=== PATIENT | male | born 1935 | race Caucasian/White ===

== ENCOUNTER 2017-11-07 18:56 | Inpatient (IN) | payer OTHER ==
[2017-11-07 19:20] LABS: ADD MAN DIFF? NO
[2017-11-07 19:25] LABS: BASO # 0.1 x10^3/uL (0.0-0.2); BASO % 1 % (0-3); EOS # 0.1 x10^3/uL (0.0-0.7); EOS % 1 % (0-3); HEMATOCRIT 45.3 % (39.0-53.0); HEMOGLOBIN 14.9 g/dL (13.0-17.5); LYMPH # 2.7 x10^3/uL (1.0-4.8); LYMPH % 22 % (24-48); MEAN CORPUSCULAR HEMOGLOBIN 31 pg (25-35); MEAN CORPUSCULAR HGB CONC 33 g/dL (31-37); MEAN CORPUSCULAR VOLUME 95 fL (79-100); MONO # 1.1 x10^3/uL (0.0-1.1); MONO % 9 % (0-9); NEUT # 8.4 x10^3uL (1.8-7.7); NEUT % 68 % (31-73); PLATELET COUNT 153 x10^3/uL (140-400); RED BLOOD COUNT 4.76 x10^6/uL (4.30-5.70); WHITE BLOOD COUNT 12.4 x10^3/uL (4.0-11.0)
[2017-11-07 19:32] LABS: ANION GAP 10 (6-14); BLOOD UREA NITROGEN 20 mg/dL (8-26); BUN/CREATININE RATIO 17 (6-20); CALCIUM 9.6 mg/dL (8.5-10.1); CARBON DIOXIDE 27 mmol/L (21-32); CHLORIDE 104 mmol/L (98-107); CREATININE 1.2 mg/dL (0.7-1.3); GFR 58.1; GLUCOSE 132 mg/dL (70-99); POTASSIUM 4.8 mmol/L (3.5-5.1); SODIUM 141 mmol/L (136-145)
[2017-11-07 19:38] LABS: ALBUMIN 3.8 g/dL (3.4-5.0); ALBUMIN/GLOBULIN RATIO 0.8 (1.0-1.7); ALK PHOS 111 U/L (46-116); ALT (SGPT) 38 U/L (16-63); AST (SGOT) 40 U/L (15-37); TOTAL BILIRUBIN 1.5 mg/dL (0.2-1.0); TOTAL PROTEIN 8.3 g/dL (6.4-8.2)
[2017-11-07 20:17] LABS: TROPONINI 0.821 ng/mL (0.000-0.055)
[2017-11-07] MEDS: IOHEXOL 300 MG/ML 100ML VIAL. IV (20:30)
[2017-11-07] MEDS: FUROSEMIDE 40 MG/4 ML VIAL. IVP (20:35)
[2017-11-07] MEDS: ASPIRIN CHEWABLE 81 MG TABLET. PO (20:36)
[2017-11-07] MEDS: NITROGLYCERIN OINT 1 GM PACKET. TP (20:37)
[2017-11-07] MEDS ORDERED: fentaNYL PF VIAL 100 MCG/2 ML VIAL IV (22:00)
[2017-11-07] MEDS ORDERED: ONDANSETRON PF 4 MG/2 ML VIAL. IV (22:00)
[2017-11-07] MEDS ORDERED: NITROGLYCERIN SUBLINGUAL 0.4 MG BOTTLE OF 25. SL (22:00)
[2017-11-07] MEDS ORDERED: ACETAMINOPHEN 325 MG TABLET. PO (22:00)
[2017-11-08 02:24] LABS: TROPONINI 0.741 ng/mL (0.000-0.055)
[2017-11-08 06:03] LABS: TROPONINI 0.874 ng/mL (0.000-0.055)
[2017-11-08] MEDS ORDERED: hydrALAZINE 20 MG/ML VIAL. IVP (09:45)
[2017-11-08] MEDS ORDERED: MORPHINE SULFATE 4 MG/ML DISP.SYRIN. IV (09:45)
[2017-11-08] MEDS ORDERED: ONDANSETRON PF 4 MG/2 ML VIAL. IV (09:45)
[2017-11-08] MEDS ORDERED: traMADol 50 MG TABLET PO (09:45)
[2017-11-08] MEDS ORDERED: DOCUSATE SODIUM 100 MG CAPSULE. PO (09:45)
[2017-11-08] MEDS ORDERED: ACETAMINOPHEN 325 MG TABLET. PO (09:45)
[2017-11-08] MEDS: METOPROLOL TART IMMED RELEASE 50 MG TABLET. PO ×2 (10:00→20:16)
[2017-11-08] MEDS ORDERED: ATORVASTATIN CALCIUM 20 MG TABLET PO (10:00)
[2017-11-08] MEDS: ASPIRIN ENTERIC COATED 81 MG TABLET.DR. PO (10:30)
[2017-11-08] MEDS: amLODIPine BESYLATE 5 MG TABLET PO (10:34)
[2017-11-08] MEDS: LISINOPRIL 20 MG TABLET PO (10:34)
[2017-11-08] MEDS: FUROSEMIDE 40 MG/4 ML VIAL. IVP (10:41)
[2017-11-08] MEDS ORDERED: ENOXAPARIN 40 MG/0.4 ML SYRINGE. SQ (16:00)
[2017-11-08] MEDS: ANTI-COAG MONITOR BY PHARMACY. MC (16:18)
[2017-11-08] MEDS: OXYMETAZOLINE 0.05% NASAL SPRAY 30ML BOTTLE. NS (20:12)
[2017-11-08] MEDS: ATORVASTATIN CALCIUM 20 MG TABLET PO (20:13)
[2017-11-08] MEDS ORDERED: diphenhydrAMINE HCL 25 MG CAPSULE PO (20:15)
[2017-11-09 06:12] LABS: ADD MAN DIFF? NO; BASO # 0.1 x10^3/uL (0.0-0.2); BASO % 1 % (0-3); EOS # 0.2 x10^3/uL (0.0-0.7); EOS % 3 % (0-3); HEMATOCRIT 45.9 % (39.0-53.0); HEMOGLOBIN 15.5 g/dL (13.0-17.5); LYMPH # 2.5 x10^3/uL (1.0-4.8); LYMPH % 30 % (24-48); MEAN CORPUSCULAR HEMOGLOBIN 32 pg (25-35); MEAN CORPUSCULAR HGB CONC 34 g/dL (31-37); MEAN CORPUSCULAR VOLUME 94 fL (79-100); MONO # 0.8 x10^3/uL (0.0-1.1); MONO % 9 % (0-9); NEUT # 4.8 x10^3uL (1.8-7.7); NEUT % 57 % (31-73); PLATELET COUNT 146 x10^3/uL (140-400); RED BLOOD COUNT 4.89 x10^6/uL (4.30-5.70); RED CELL DISTRIBUTION WIDTH 15.1 % (11.5-14.5); WHITE BLOOD COUNT 8.4 x10^3/uL (4.0-11.0)
[2017-11-09 06:43] LABS: ANION GAP 10 (6-14); BLOOD UREA NITROGEN 19 mg/dL (8-26); CALCIUM 9.3 mg/dL (8.5-10.1); CARBON DIOXIDE 29 mmol/L (21-32); CHLORIDE 102 mmol/L (98-107); CHOLESTEROL 103 mg/dL (0-200); CREATININE 1.4 mg/dL (0.7-1.3); GFR 48.6; GLUCOSE 85 mg/dL (70-99); HDLC 57 mg/dL (40-60); LDLC 36 mg/dL (0-100); NON-HDL CHOLESTEROL 46 mg/dL (0-129); POTASSIUM 3.4 mmol/L (3.5-5.1); SODIUM 141 mmol/L (136-145); TRIGLYCERIDES 52 mg/dL (0-150); VLDLC 10 mg/dL (0-40)
[2017-11-09 06:44] LABS: CHOLESTEROL/HDL RATIO 1.8
[2017-11-09 07:06] LABS: THYROID STIM HORMONE (TSH) 6.295 uIU/mL (0.358-3.74)
[2017-11-09] MEDS: ASPIRIN ENTERIC COATED 81 MG TABLET.DR. PO (08:29)
[2017-11-09] MEDS: LISINOPRIL 20 MG TABLET PO (08:29)
[2017-11-09] MEDS: amLODIPine BESYLATE 5 MG TABLET PO (08:29)
[2017-11-09] MEDS: FUROSEMIDE 40 MG/4 ML VIAL. IVP (08:30)
[2017-11-09] MEDS: METOPROLOL TART IMMED RELEASE 50 MG TABLET. PO ×2 (09:24→21:54)
[2017-11-09] MEDS: POTASSIUM CHLORIDE 20 MEQ TABLET.ER. PO (11:55)
[2017-11-09] MEDS: ANTI-COAG MONITOR BY PHARMACY. MC (12:34)
[2017-11-09] MEDS: ATORVASTATIN CALCIUM 20 MG TABLET PO (21:54)
[2017-11-10 05:41] LABS: ANION GAP 8 (6-14); BLOOD UREA NITROGEN 20 mg/dL (8-26); CALCIUM 9.3 mg/dL (8.5-10.1); CARBON DIOXIDE 32 mmol/L (21-32); CHLORIDE 105 mmol/L (98-107); CREATININE 1.4 mg/dL (0.7-1.3); GFR 48.6; GLUCOSE 87 mg/dL (70-99); MAGNESIUM 2.2 mg/dL (1.8-2.4); POTASSIUM 4.5 mmol/L (3.5-5.1); SODIUM 145 mmol/L (136-145)
[2017-11-10 08:56] LABS: FREE T4 1.04 ng/dL (0.76-1.46)
[2017-11-10] MEDS: REGADENOSON 0.4 MG/5 ML DISP.SYRIN. IV (10:25)
[2017-11-10] MEDS: POTASSIUM CHLORIDE 20 MEQ TABLET.ER. PO (12:31)
[2017-11-10] MEDS: FUROSEMIDE 40 MG TABLET. PO (12:32)
[2017-11-10] MEDS: ASPIRIN ENTERIC COATED 81 MG TABLET.DR. PO (12:32)
[2017-11-10] MEDS: amLODIPine BESYLATE 5 MG TABLET PO (12:32)
[2017-11-10] MEDS: METOPROLOL TART IMMED RELEASE 50 MG TABLET. PO (12:32)
[2017-11-10] MEDS: LISINOPRIL 20 MG TABLET PO (12:33)
[2017-11-10] MEDS: ANTI-COAG MONITOR BY PHARMACY. MC (15:29)
[2017-11-10] MEDS ORDERED: METOPROLOL TART IMMED RELEASE 25 MG TABLET. PO (21:00)
[2017-11-10] MEDS ORDERED: APIXABAN 5 MG TABLET. PO (21:00)
== END 2017-11-10 17:05 | disposition home or self-care (01) | DRG 291 ==
LOC: ER 18:56 → 2 NORTH 21:03
DX: I13.0 Hypertensive heart and chronic kidney disease with heart failure and stage 1 through stage 4 chronic kidney disease, or unspecified chronic kidney disease (principal); I50.31 Acute diastolic (congestive) heart failure; I48.0 Paroxysmal atrial fibrillation; N18.3 Chronic kidney disease, stage 3 (moderate); Z95.1 Presence of aortocoronary bypass graft; M19.90 Unspecified osteoarthritis, unspecified site; D72.829 Elevated white blood cell count, unspecified; E78.5 Hyperlipidemia, unspecified; I25.10 Atherosclerotic heart disease of native coronary artery without angina pectoris; Z79.01 Long term (current) use of anticoagulants; Z82.49 Family history of ischemic heart disease and other diseases of the circulatory system; Z87.440 Personal history of urinary (tract) infections; Z90.49 Acquired absence of other specified parts of digestive tract
CPT/HCPCS: 36415; 71045; 71275; 78452; 80048; 80053; 80061; 83735; 84439; 84443; 84481; 84484; 85025; 93005; 93017; 93306; 93970; 96374; 96375; 96376; 99285; 99285-25; A9500; J1650; J1940; J2785

== ENCOUNTER 2017-11-25 07:34 | Observation (INO) | payer OTHER ==
[2017-11-25 08:12] LABS: HEMATOCRIT 50.1 % (39.0-53.0); HEMOGLOBIN 16.3 g/dL (13.0-17.5); MEAN CORPUSCULAR HEMOGLOBIN 31 pg (25-35); MEAN CORPUSCULAR HGB CONC 33 g/dL (31-37); MEAN CORPUSCULAR VOLUME 94 fL (79-100); PLATELET COUNT 178 x10^3/uL (140-400); RED BLOOD COUNT 5.31 x10^6/uL (4.30-5.70); RED CELL DISTRIBUTION WIDTH 15.4 % (11.5-14.5); WHITE BLOOD COUNT 8.4 x10^3/uL (4.0-11.0)
[2017-11-25 08:24] LABS: INR 1.1 (0.8-1.1); PROTHROMBIN TIME PATIENT 13.8 SEC (11.7-14.0)
[2017-11-25 08:38] LABS: ANION GAP 9 (6-14); BLOOD UREA NITROGEN 24 mg/dL (8-26); CALCIUM 9.8 mg/dL (8.5-10.1); CARBON DIOXIDE 32 mmol/L (21-32); CHLORIDE 102 mmol/L (98-107); CREATININE 1.4 mg/dL (0.7-1.3); GFR 48.6; GLUCOSE 98 mg/dL (70-99); POTASSIUM 4.3 mmol/L (3.5-5.1); SODIUM 143 mmol/L (136-145)
[2017-11-25] MEDS ORDERED: ceFAZolin 2GM PREMIX 2 GM/50 ML BAG IV (09:00)
[2017-11-25] MEDS ORDERED: fentaNYL PF VIAL 100 MCG/2 ML VIAL (09:33)
[2017-11-25] MEDS ORDERED: MIDAZOLAM HCL/PF 2 MG/2 ML VIAL. (09:33)
[2017-11-25] MEDS ORDERED: LIDOCAINE 2%/EPI 1:100,000 20 ML VIAL. (09:43)
[2017-11-25] MEDS: LIDOCAINE 2%/EPI 1:100,000 20 ML VIAL. IJ (10:24)
[2017-11-25] MEDS: BACITRACIN 50,000 UNIT in IV NORMAL SALINE 250ML 250 ML IRR (10:25)
[2017-11-25] MEDS: MIDAZOLAM HCL/PF 2 MG/2 ML VIAL. IV (10:26)
[2017-11-25] MEDS: fentaNYL PF VIAL 100 MCG/2 ML VIAL IV (10:26)
[2017-11-25] MEDS ORDERED: NO ANTICOAGULANT THERAPY. MC (11:30)
[2017-11-25] MEDS: METOPROLOL TART IMMED RELEASE 25 MG TABLET. PO (21:38)
[2017-11-25] MEDS: ATORVASTATIN CALCIUM 20 MG TABLET PO (22:48)
[2017-11-26] MEDS ORDERED: ATORVASTATIN CALCIUM 20 MG TABLET PO (09:00)
[2017-11-26] MEDS: FUROSEMIDE 40 MG TABLET. PO (09:10)
[2017-11-26] MEDS: LISINOPRIL 20 MG TABLET PO (09:10)
[2017-11-26] MEDS: amLODIPine BESYLATE 5 MG TABLET PO ×2 (09:12→13:06)
[2017-11-26] MEDS: METOPROLOL TART IMMED RELEASE 25 MG TABLET. PO ×2 (09:13→20:34)
[2017-11-26] MEDS: ASPIRIN ENTERIC COATED 81 MG TABLET.DR. PO (09:14)
[2017-11-26 13:22] LABS: BILIRUBIN,URINE NEGATIVE (NEG); CLARITY,URINE CLEAR; COLOR,URINE YELLOW; GLUCOSE,URINE NEGATIVE (NEG); NITRITE,URINE NEGATIVE (NEG); PH,URINE 7.5; PROTEIN,URINE NEGATIVE (NEG-TRACE)
[2017-11-26 13:48] LABS: BACTERIA,URINE 0 /HPF (0-FEW); SQUAMOUS EPITHELIAL CELL,UR MOD /LPF; WBC,URINE 0 /HPF (0-4)
[2017-11-26] MEDS: CIPROFLOXACIN HCL 250 MG TABLET. PO (14:49)
[2017-11-26] MEDS: ATORVASTATIN CALCIUM 20 MG TABLET PO (20:34)
[2017-11-26] MEDS: TAMSULOSIN 0.4 MG CAP.ER.24H. PO (20:34)
[2017-11-27] MEDS: ASPIRIN ENTERIC COATED 81 MG TABLET.DR. PO (08:41)
[2017-11-27] MEDS: FUROSEMIDE 40 MG TABLET. PO (08:42)
[2017-11-27] MEDS: METOPROLOL TART IMMED RELEASE 25 MG TABLET. PO (08:43)
[2017-11-27] MEDS: amLODIPine BESYLATE 10 MG TABLET PO (09:00)
[2017-11-27] MEDS: LISINOPRIL 20 MG TABLET PO (09:00)
[2017-11-27] MEDS ORDERED: TAMSULOSIN 0.4 MG CAP.ER.24H. PO (09:00)
== END 2017-11-27 18:15 | disposition home health service (06) ==
LOC: CCL 07:34 → 2 SOUTH 08:30
DX: I44.2 Atrioventricular block, complete (principal); I48.0 Paroxysmal atrial fibrillation; I25.10 Atherosclerotic heart disease of native coronary artery without angina pectoris; I10 Essential (primary) hypertension; E78.5 Hyperlipidemia, unspecified; R33.8 Other retention of urine; I25.2 Old myocardial infarction; M19.90 Unspecified osteoarthritis, unspecified site; Z82.49 Family history of ischemic heart disease and other diseases of the circulatory system; Z95.0 Presence of cardiac pacemaker; Z95.1 Presence of aortocoronary bypass graft
CPT/HCPCS: 33208; 36415; 71045; 71046; 80048; 81001; 85027; 85610; 93005; 96365; 96375; 99152; 99153; C1785; C1898; G0378; G0379; J0690; J1644; J2250; J3010; J3490; J7050